=== PATIENT | female | born 1950 | race Hispanic/Latino ===

== ENCOUNTER 2017-12-20 23:29 | Emergency (ER) | payer OTHER ==
[~2017-12-20] VITALS: Ht 152.4 cm; Wt 81.6 kg
[~2017-12-20 23:29] MED LIST: ALPRAZOLAM0.5 MG PO; COUMADIN4 MG PO; ESCITALOPRAM OX10 MG PO; HYDROCODON-ACE1 EA11 PO; IMODIUM2 MG PO; METOPROLOL TART25 MG PO; RENVELA800 MG PO; SODIUM BICARBO650 MG PO
--- NOTE | 2017-12-21 00:31 | Diagnostic Imaging Report ---
History: Fall, hit the back of head Comparison studies:None Technique: Axial images were obtained from the brain and cervical spine. Coronal and sagittal images reconstructed from the axial data. Intravenous contrast: None Dose modulation, iterative reconstruction, and/or weight based adjustment of the mA/kV was utilized to reduce the radiation dose to as low as reasonably achievable. Findings: Head CT: Scalp/skull: No abnormalities. No fractures, blastic or lytic lesions. Brain sulci: Appropriate for age. Ventricles: Normal in size and configuration. No hydrocephalus. Extra-axial spaces: No masses. No fluid collections. Parenchyma: Scattered small hypodensities of the periventricular and deep white matter. Small chronic lacunar infarcts at the bilateral striatocapsular regions. No masses, hemorrhage, acute or chronic cortical vascular insults. Sellar/suprasellar region: No abnormalities. Craniocervical junction: Patent foramen magnum. No Chiari one malformation. Cervical spine CT: Fractures: None. Soft tissues: No gross abnormalities. Atlantoaxial articulation: No acute abnormality. Degenerative changes with decreased predental space, and sclerosis.. Alignment: Mild grade 1 anterolisthesis of C4 over C5. No scoliosis. Cervicomedullary junction: No abnormalities. Patent foramen magnum. Vertebrae: No infection or neoplasm. Partial fusion of C1 lateral masses and right posterior elements with the occipital condyles Degenerative changes: Uncinate process hypertrophy and facet hypertrophy results in [id number] foraminal narrowing of the medial cervical spine.. Incidental findings: None. Impression: Head CT: 1. No acute intracranial abnormality. 2. Mild chronic microvascular ischemic changes of the white matter. Cervical spine CT: 1. No acute abnormalities. 2. Cannot exclude ligament, spinal cord and or vascular abnormalities on the basis of this examination. Signed by: DR Abundio Stallings M.D. on 12/21/2017 12:27 AM
== END 2017-12-21 02:01 | disposition home or self-care (01) ==
LOC: ER 23:29
DX: S00.83XA Contusion of other part of head, initial encounter (principal); W05.0XXA Fall from non-moving wheelchair, initial encounter; Y92.008 Other place in unspecified non-institutional (private) residence as the place of occurrence of the external cause
CPT/HCPCS: 70450; 72125; 99284

== ENCOUNTER 2021-05-04 11:34 | Inpatient (IN) | payer MEDICARE, OTHER ==
[~2021-05-04] VITALS: Ht 152.4 cm; Wt 64.9 kg
[2021-05-04] MEDS ORDERED: ALBUTEROL/IPRATROPIUM 3 ML NEB NEB ONE (12:00)
[2021-05-04 12:40] LABS: BASOPHILS % 0.2 % (0.0-1.0); EOSINOPHILS # (AUTO) 0.1 (0.0-0.4); EOSINOPHILS % 1.2 % (0.0-6.0); HEMATOCRIT 27.9 % (34.2-44.1); HEMOGLOBIN 8.4 g/dL (12.0-16.0); LYMPHOCYTES # (AUTO) 0.8 (1.0-3.2); LYMPHOCYTES % 8.8 % (18.0-39.1); MEAN CORPUSCULAR HEMOGLOBIN 31.8 pg (28-32); MEAN CORPUSCULAR HGB CONC 30.1 g/dL (31-35); MEAN CORPUSCULAR VOLUME 105.7 fL (81-99); MONOCYTES # (AUTO) 0.4 (0.2-0.8); MONOCYTES % 3.9 % (4.4-11.3); NEUTROPHILS # (AUTO) 7.5 (2.1-6.9); NEUTROPHILS % 84.2 % (38.7-80.0); PLATELET COUNT 275 x10e3/uL (140-360); RED BLOOD COUNT 2.64 x10e6/uL (3.6-5.1); RED CELL DISTRIBUTION WIDTH 17.4 % (11.7-14.4)
[2021-05-04 13:00] LABS: ALBUMIN 2.8 g/dL (3.5-5.0); ALBUMIN/GLOBULIN RATIO 0.6 (0.8-2.0); ANION GAP 24.6 mmol/L (8-16); CALCIUM 8.8 mg/dL (8.4-10.2); CREATININE, SERUM 11.87 mg/dL (0.57-1.11)
[2021-05-04 13:02] LABS: POTASSIUM 5.6 mmol/L (3.5-5.1)
[2021-05-04] MEDS ORDERED: DEXTROSE 50% SYRINGE 50 ML IV STA (13:04)
[2021-05-04] MEDS ORDERED: SODIUM BICARBONATE 8.4% INJ 50 ML SYR IV STA (13:04)
[2021-05-04] MEDS ORDERED: ALBUTEROL SULFATE HFA 8GM INHALATION AEROSOL INH PRN (13:15)
[2021-05-04] MEDS ORDERED: SOD POLYSTYRENE SULFONATE SUSP 15 GM/60 ML BTL PO ONE (13:15)
[2021-05-04] MEDS ORDERED: INSULIN REGULAR, HUMAN 100 UNIT/1 ML IV ONE (13:15)
[2021-05-04] MEDS ORDERED: DEXAMETHASONE SOD PHOS 10 MG/1 ML VIAL IV ONE (13:30)
[2021-05-04] MEDS ORDERED: LOPERAMIDE HCL 2 MG CAP PO PRN (14:30)
[2021-05-04] MEDS ORDERED: DEXTROSE 50% SYRINGE 50 ML IV PRN (14:30)
[2021-05-04] MEDS ORDERED: SODIUM CHLORIDE 0.9% 1000ML 2,000 ML ONE (14:52)
[2021-05-04 16:04] VITALS: BP 145/80
[2021-05-04] MEDS: INSULIN REGULAR, HUMAN 100 UNIT/1 ML SQ SCH ×2 (16:30→21:33)
[2021-05-04 16:42] VITALS: BP 145/80
[2021-05-04] MEDS ORDERED: CEFTRIAXONE 1 GM in SODIUM CHLORIDE 0.9% 50ML 50 ML IV SCH (17:00)
[2021-05-04] MEDS: SODIUM BICARBONATE 650 MG TAB PO SCH (18:39)
[2021-05-04] MEDS: HYDROCODONE/APAP 5MG-325MG TAB PO PRN (18:40)
[2021-05-04 20:00] VITALS: BP 116/74
[2021-05-04 21:00] VITALS: BP 116/74
[2021-05-04] MEDS ORDERED: HEPARIN SOD (PORCINE) 5,000 UNIT/ML VIAL SC SCH (21:00)
[2021-05-04] MEDS ORDERED: ZOLPIDEM TARTRATE 5 MG TAB PO PRN (21:00)
[2021-05-04] MEDS: CEFTRIAXONE 1 GM in SODIUM CHLORIDE 0.9% 50ML 50 ML IV SCH (21:31)
[2021-05-05] VITALS (9 sets, daily range): BP systolic 116–144; BP diastolic 67–80
[2021-05-05] MEDS ORDERED: LIDOCAINE 4% PATCH TP PRN (02:00)
[2021-05-05] MEDS ORDERED: ALBUTEROL/IPRATROPIUM 3 ML NEB NEB PRN (02:00)
[2021-05-05] MEDS ORDERED: SIMETHICONE 80 MG CHEW PO PRN (02:00)
[2021-05-05] MEDS ORDERED: CHLORASEPTIC SPRAY 177 ML BTL MM PRN (02:00)
[2021-05-05] MEDS ORDERED: DIPHENHYDRAMINE HCL 25 MG CAP PO PRN (02:00)
[2021-05-05] MEDS ORDERED: DEXTROSE 50% SYRINGE 50 ML IV PRN (02:00)
[2021-05-05] MEDS ORDERED: DOCUSATE SODIUM 100 MG CAP PO PRN (02:00)
[2021-05-05] MEDS ORDERED: HYDRALAZINE HCL 20 MG/ML VIAL IV PRN (02:00)
[2021-05-05] MEDS ORDERED: TRAMADOL HCL 50 MG TAB PO PRN (02:00)
[2021-05-05 05:04] LABS: BASOPHILS % 0.2 % (0.0-1.0); HEMATOCRIT 27.8 % (34.2-44.1); HEMOGLOBIN 8.5 g/dL (12.0-16.0); LYMPHOCYTES # (AUTO) 0.6 (1.0-3.2); LYMPHOCYTES % 9.8 % (18.0-39.1); MEAN CORPUSCULAR HEMOGLOBIN 31.3 pg (28-32); MEAN CORPUSCULAR HGB CONC 30.6 g/dL (31-35); MEAN CORPUSCULAR VOLUME 102.2 fL (81-99); MONOCYTES # (AUTO) 0.3 (0.2-0.8); MONOCYTES % 5.7 % (4.4-11.3); NEUTROPHILS # (AUTO) 4.9 (2.1-6.9); NEUTROPHILS % 81.9 % (38.7-80.0); PLATELET COUNT 228 x10e3/uL (140-360); RED BLOOD COUNT 2.72 x10e6/uL (3.6-5.1); RED CELL DISTRIBUTION WIDTH 17.2 % (11.7-14.4)
[2021-05-05 05:31] LABS: ANION GAP 22.2 mmol/L (8-16); CALCIUM 8.3 mg/dL (8.4-10.2); CREATININE, SERUM 6.55 mg/dL (0.57-1.11); POTASSIUM 4.2 mmol/L (3.5-5.1)
[2021-05-05 06:12] LABS: MAGNESIUM 2.1 MG/DL (1.3-2.1); PHOSPHORUS 7.2 MG/DL (2.3-4.7)
[2021-05-05] MEDS ORDERED: PANTOPRAZOLE SOD 40 MG TABEC PO SCH (07:30)
[2021-05-05] MEDS ORDERED: SEVELAMER CARBONATE 800 MG TAB PO SCH (08:00)
[2021-05-05] MEDS: SODIUM BICARBONATE 650 MG TAB PO SCH ×2 (08:13→16:34)
[2021-05-05] MEDS: DEXAMETHASONE SOD PHOS 10 MG/1 ML VIAL IV SCH (08:14)
[2021-05-05] MEDS: INSULIN REGULAR, HUMAN 100 UNIT/1 ML SQ SCH ×5 (08:30→22:04)
[2021-05-05] MEDS ORDERED: REMDESIVIR 200MG 200 MG in SODIUM CHLORIDE 0.9% 100 ML IV ONE (09:00)
[2021-05-05] MEDS: ALPRAZOLAM 0.25 MG TAB PO PRN ×2 (11:13→22:00)
[2021-05-05] MEDS: SEVELAMER CARBONATE 800 MG TAB PO SCH ×2 (12:03→16:34)
[2021-05-05] MEDS ORDERED: SODIUM CHLORIDE 0.9% 1000ML 2,000 ML IV PRN (15:45)
[2021-05-05] MEDS ORDERED: HEPARIN SOD (PORCINE) 1000 UNIT/ML SDV IV PRN (16:15)
[2021-05-05] MEDS: CEFTRIAXONE 1 GM in SODIUM CHLORIDE 0.9% 50ML 50 ML IV SCH (20:59)
[2021-05-06] VITALS (19 sets, daily range): BP systolic 108–138; BP diastolic 54–82
[2021-05-06] MEDS: ALPRAZOLAM 0.25 MG TAB PO PRN ×2 (05:56→15:05)
[2021-05-06] MEDS ORDERED: ZIPRASIDONE 20 MG VIAL IM ONE (07:00)
[2021-05-06] MEDS: SEVELAMER CARBONATE 800 MG TAB PO SCH ×3 (07:30→18:04)
[2021-05-06] MEDS: INSULIN LISPRO 100 UNIT/1 ML 3ML VIAL SQ SCH ×3 (08:30→21:42)
[2021-05-06] MEDS: DEXAMETHASONE SOD PHOS 10 MG/1 ML VIAL IV SCH (09:16)
[2021-05-06] MEDS: REMDESIVIR 100MG 100 MG in SODIUM CHLORIDE 0.9% 100 ML IV SCH (09:16)
[2021-05-06] MEDS: SODIUM BICARBONATE 650 MG TAB PO SCH ×2 (09:16→18:04)
[2021-05-06] MEDS: CEFTRIAXONE 1 GM in SODIUM CHLORIDE 0.9% 50ML 50 ML IV SCH (20:41)
[2021-05-07] VITALS (15 sets, daily range): BP systolic 99–143; BP diastolic 53–79
[2021-05-07 05:50] LABS: BASOPHILS % 0.3 % (0.0-1.0); HEMATOCRIT 29.5 % (34.2-44.1); LYMPHOCYTES # (AUTO) 0.8 (1.0-3.2); LYMPHOCYTES % 14.2 % (18.0-39.1); MEAN CORPUSCULAR HGB CONC 30.5 g/dL (31-35); MONOCYTES # (AUTO) 0.4 (0.2-0.8); MONOCYTES % 7.2 % (4.4-11.3); NEUTROPHILS # (AUTO) 4.4 (2.1-6.9); NEUTROPHILS % 75.7 % (38.7-80.0); PLATELET COUNT 276 x10e3/uL (140-360); RED BLOOD COUNT 2.81 x10e6/uL (3.6-5.1); RED CELL DISTRIBUTION WIDTH 17.1 % (11.7-14.4)
[2021-05-07 06:04] LABS: ALBUMIN 2.6 g/dL (3.5-5.0); ALBUMIN/GLOBULIN RATIO 0.6 (0.8-2.0); ANION GAP 23.5 mmol/L (8-16); CALCIUM 8.9 mg/dL (8.4-10.2); CREATININE, SERUM 7.35 mg/dL (0.57-1.11); POTASSIUM 4.5 mmol/L (3.5-5.1)
[2021-05-07] MEDS: INSULIN LISPRO 100 UNIT/1 ML 3ML VIAL SQ SCH ×4 (07:30→20:33)
[2021-05-07] MEDS: ALPRAZOLAM 0.25 MG TAB PO PRN (07:44)
[2021-05-07] MEDS: SEVELAMER CARBONATE 800 MG TAB PO SCH ×3 (08:12→17:25)
[2021-05-07] MEDS: SODIUM BICARBONATE 650 MG TAB PO SCH ×2 (09:00→17:26)
[2021-05-07] MEDS: GUAIFENESIN/CODEINE 5 ML LIQD PO PRN (09:02)
[2021-05-07] MEDS: HYDROCODONE/APAP 5MG-325MG TAB PO PRN (10:26)
[2021-05-07 11:12] LABS: LYMPHOCYTES % (MANUAL) 8 % (19-48); MONOCYTES % (MANUAL) 8 % (3.4-9.0); MYELOCYTES % (MANUAL) 2 % (0-0); NEUTROPHILS % (MANUAL) 82 % (40-74); NUCLEATED RED BLOOD CELLS 4; PLATELET ESTIMATE ADEQUATE
[2021-05-07 11:13] LABS: PLATELET MORPHOLOGY COMMENT NORMAL; RBC MORPHOLOGY COMMENT NORMAL
[2021-05-07] MEDS ORDERED: DIPHENHYDRAMINE HCL INJ 50 MG/ML VIAL IV ONE ×2 (12:30→13:15)
[2021-05-07] MEDS: DEXAMETHASONE SOD PHOS 10 MG/1 ML VIAL IV SCH (13:30)
[2021-05-07] MEDS: ENOXAPARIN 30 MG/0.3 ML SYR SC SCH (13:35)
[2021-05-07] MEDS: REMDESIVIR 100MG 100 MG in SODIUM CHLORIDE 0.9% 100 ML IV SCH (14:30)
[2021-05-07] MEDS: CEFTRIAXONE 1 GM in SODIUM CHLORIDE 0.9% 50ML 50 ML IV SCH (20:37)
[2021-05-07] MEDS ORDERED: AZITHROMYCIN 250 MG TAB PO SCH (21:00)
[2021-05-07] MEDS: INSULIN GLARGINE 100 UNITS/ML VIAL SQ SCH (22:31)
[2021-05-08] VITALS (9 sets, daily range): BP systolic 105–138; BP diastolic 50–94
[2021-05-08 05:49] LABS: BASOPHILS % 0.3 % (0.0-1.0); HEMATOCRIT 31.7 % (34.2-44.1); HEMOGLOBIN 9.7 g/dL (12.0-16.0); LYMPHOCYTES # (AUTO) 1.2 (1.0-3.2); LYMPHOCYTES % 16.9 % (18.0-39.1); MEAN CORPUSCULAR HEMOGLOBIN 31.5 pg (28-32); MEAN CORPUSCULAR HGB CONC 30.6 g/dL (31-35); MEAN CORPUSCULAR VOLUME 102.9 fL (81-99); MONOCYTES # (AUTO) 0.6 (0.2-0.8); MONOCYTES % 7.6 % (4.4-11.3); NEUTROPHILS # (AUTO) 5.1 (2.1-6.9); NEUTROPHILS % 70.8 % (38.7-80.0); PLATELET COUNT 288 x10e3/uL (140-360); RED BLOOD COUNT 3.08 x10e6/uL (3.6-5.1); RED CELL DISTRIBUTION WIDTH 16.9 % (11.7-14.4)
[2021-05-08 06:09] LABS: ANION GAP 21.5 mmol/L (8-16); CALCIUM 9.6 mg/dL (8.4-10.2); CREATININE, SERUM 4.43 mg/dL (0.57-1.11); POTASSIUM 4.5 mmol/L (3.5-5.1)
[2021-05-08] MEDS: INSULIN LISPRO 100 UNIT/1 ML 3ML VIAL SQ SCH ×4 (07:13→21:00)
[2021-05-08] MEDS: ENOXAPARIN 30 MG/0.3 ML SYR SC SCH (08:49)
[2021-05-08] MEDS: REMDESIVIR 100MG 100 MG in SODIUM CHLORIDE 0.9% 100 ML IV SCH (08:49)
[2021-05-08] MEDS: SEVELAMER CARBONATE 800 MG TAB PO SCH ×3 (08:49→16:55)
[2021-05-08] MEDS: DEXAMETHASONE SOD PHOS 10 MG/1 ML VIAL IV SCH (08:49)
[2021-05-08] MEDS: SODIUM BICARBONATE 650 MG TAB PO SCH ×2 (08:49→16:55)
[2021-05-08 11:38] LABS: LYMPHOCYTES % (MANUAL) 6 % (19-48); MONOCYTES % (MANUAL) 3 % (3.4-9.0); MYELOCYTES % (MANUAL) 1 % (0-0); NEUTROPHILS % (MANUAL) 90 % (40-74); NUCLEATED RED BLOOD CELLS 1; PLATELET ESTIMATE ADEQUATE; PLATELET MORPHOLOGY COMMENT NORMAL; RBC MORPHOLOGY COMMENT NORMAL
[2021-05-08] MEDS: DEXMEDETOMIDINE 400MCG/NS100ML 100 ML IV PRN (12:06)
[2021-05-08] MEDS: APIXAB 2.5 MG TABLET PO SCH (16:55)
[2021-05-08] MEDS: GUAIFENESIN/CODEINE 5 ML LIQD PO PRN (16:57)
[2021-05-08] MEDS: BENZONATATE 100 MG CAP PO PRN (16:57)
[2021-05-08] MEDS: ACETAMINOPHEN 325 MG TAB PO PRN (16:57)
[2021-05-08] MEDS: ALPRAZOLAM 0.25 MG TAB PO PRN (17:03)
[2021-05-08] MEDS ORDERED: SODIUM CHLORIDE 0.9% 100 ML ONE (20:58)
[2021-05-08] MEDS: CEFTRIAXONE 1 GM in SODIUM CHLORIDE 0.9% 50ML 50 ML IV SCH (21:09)
[2021-05-08] MEDS: INSULIN GLARGINE 100 UNITS/ML VIAL SQ SCH (21:24)
[2021-05-08] MEDS ORDERED: Morphine 2mg Syringe 2 MG/ML SYR IV ONE (23:45)
[2021-05-09] VITALS (23 sets, daily range): BP systolic 76–140; BP diastolic 33–102
[2021-05-09] MEDS: HYDROCODONE/APAP 5MG-325MG TAB PO PRN (00:24)
[2021-05-09] MEDS ORDERED: ZIPRASIDONE 20 MG VIAL IM STA (06:48)
[2021-05-09] MEDS: INSULIN LISPRO 100 UNIT/1 ML 3ML VIAL SQ SCH ×4 (07:30→21:00)
[2021-05-09] MEDS ORDERED: HYDROCODONE/APAP 5MG-325MG TAB PO PRN (08:30)
[2021-05-09] MEDS: ALBUTEROL SULFATE HFA 8GM INHALATION AEROSOL INH SCH ×3 (08:45→20:43)
[2021-05-09] MEDS ORDERED: ALBUTEROL SULFATE HFA 8GM INHALATION AEROSOL INH PRN (08:45)
[2021-05-09] MEDS: DEXAMETHASONE SOD PHOS 10 MG/1 ML VIAL IV SCH (08:59)
[2021-05-09] MEDS: APIXAB 2.5 MG TABLET PO SCH ×2 (08:59→16:18)
[2021-05-09] MEDS: DEXMEDETOMIDINE 400MCG/NS100ML 100 ML IV PRN (08:59)
[2021-05-09] MEDS: REMDESIVIR 100MG 100 MG in SODIUM CHLORIDE 0.9% 100 ML IV SCH (08:59)
[2021-05-09] MEDS: SODIUM BICARBONATE 650 MG TAB PO SCH ×2 (08:59→16:18)
[2021-05-09] MEDS: SEVELAMER CARBONATE 800 MG TAB PO SCH ×3 (08:59→16:18)
[2021-05-09 09:32] LABS: BASOPHILS % 0.3 % (0.0-1.0); EOSINOPHILS % 0.2 % (0.0-6.0); HEMATOCRIT 29.8 % (34.2-44.1); LYMPHOCYTES # (AUTO) 0.9 (1.0-3.2); LYMPHOCYTES % 10.3 % (18.0-39.1); MEAN CORPUSCULAR HEMOGLOBIN 31.7 pg (28-32); MEAN CORPUSCULAR HGB CONC 30.2 g/dL (31-35); MEAN CORPUSCULAR VOLUME 104.9 fL (81-99); MONOCYTES # (AUTO) 0.5 (0.2-0.8); MONOCYTES % 5.3 % (4.4-11.3); NEUTROPHILS # (AUTO) 7.1 (2.1-6.9); NEUTROPHILS % 79.9 % (38.7-80.0); PLATELET COUNT 261 x10e3/uL (140-360); RED BLOOD COUNT 2.84 x10e6/uL (3.6-5.1); RED CELL DISTRIBUTION WIDTH 16.9 % (11.7-14.4)
[2021-05-09 09:51] LABS: ALBUMIN 2.7 g/dL (3.5-5.0); ALBUMIN/GLOBULIN RATIO 0.7 (0.8-2.0); ANION GAP 22.5 mmol/L (8-16); CREATININE, SERUM 6.53 mg/dL (0.57-1.11); POTASSIUM 4.5 mmol/L (3.5-5.1)
[2021-05-09] MEDS: GUAIFENESIN/CODEINE 5 ML LIQD PO PRN ×2 (12:30→18:10)
[2021-05-09] MEDS: IPRATROPIUM BROMIDE INHALER 12.9 GM INH INH SCH ×2 (13:00→20:43)
[2021-05-09] MEDS: QUETIAPINE FUMARATE 25 MG TAB PO SCH ×2 (13:59→22:26)
[2021-05-09] MEDS: ALBUMIN 25% 12.5GM 0.25 GM/ML BTL IV PRN (17:52)
[2021-05-09] MEDS: BENZONATATE 100 MG CAP PO PRN (18:10)
[2021-05-09] MEDS: CEFTRIAXONE 1 GM in SODIUM CHLORIDE 0.9% 50ML 50 ML IV SCH (20:43)
[2021-05-09] MEDS: INSULIN GLARGINE 100 UNITS/ML VIAL SQ SCH (21:00)
[2021-05-10] VITALS (11 sets, daily range): BP systolic 95–157; BP diastolic 55–74
[2021-05-10] MEDS: IPRATROPIUM BROMIDE INHALER 12.9 GM INH INH SCH ×4 (01:00→19:00)
[2021-05-10] MEDS: ALBUTEROL SULFATE HFA 8GM INHALATION AEROSOL INH SCH ×4 (01:00→19:00)
[2021-05-10] MEDS: QUETIAPINE FUMARATE 25 MG TAB PO SCH ×3 (05:58→21:58)
[2021-05-10] MEDS: INSULIN LISPRO 100 UNIT/1 ML 3ML VIAL SQ SCH ×4 (07:30→21:56)
[2021-05-10] MEDS: SEVELAMER CARBONATE 800 MG TAB PO SCH ×3 (07:30→17:34)
[2021-05-10] MEDS: SODIUM BICARBONATE 650 MG TAB PO SCH ×2 (07:37→17:34)
[2021-05-10] MEDS: APIXAB 2.5 MG TABLET PO SCH ×2 (07:37→17:34)
[2021-05-10] MEDS: DEXAMETHASONE SOD PHOS 10 MG/1 ML VIAL IV SCH (08:38)
[2021-05-10] MEDS: REMDESIVIR 100MG 100 MG in SODIUM CHLORIDE 0.9% 100 ML IV SCH (08:38)
[2021-05-10 08:44] LABS: BASOPHILS % 0.4 % (0.0-1.0); EOSINOPHILS # (AUTO) 0.1 (0.0-0.4); EOSINOPHILS % 0.9 % (0.0-6.0); HEMATOCRIT 30.5 % (34.2-44.1); HEMOGLOBIN 9.2 g/dL (12.0-16.0); LYMPHOCYTES # (AUTO) 0.8 (1.0-3.2); LYMPHOCYTES % 8.2 % (18.0-39.1); MEAN CORPUSCULAR HEMOGLOBIN 32.6 pg (28-32); MEAN CORPUSCULAR HGB CONC 30.2 g/dL (31-35); MEAN CORPUSCULAR VOLUME 108.2 fL (81-99); MONOCYTES # (AUTO) 0.4 (0.2-0.8); MONOCYTES % 4.1 % (4.4-11.3); NEUTROPHILS # (AUTO) 7.7 (2.1-6.9); NEUTROPHILS % 82.4 % (38.7-80.0); PLATELET COUNT 213 x10e3/uL (140-360); RED BLOOD COUNT 2.82 x10e6/uL (3.6-5.1); RED CELL DISTRIBUTION WIDTH 17.2 % (11.7-14.4)
[2021-05-10 09:04] LABS: ALBUMIN 3.1 g/dL (3.5-5.0); ALBUMIN/GLOBULIN RATIO 0.9 (0.8-2.0); ANION GAP 17.3 mmol/L (8-16); CALCIUM 8.9 mg/dL (8.4-10.2); CREATININE, SERUM 3.62 mg/dL (0.57-1.11); POTASSIUM 4.3 mmol/L (3.5-5.1)
[2021-05-10] MEDS: CEFTRIAXONE 1 GM in SODIUM CHLORIDE 0.9% 50ML 50 ML IV SCH (21:35)
[2021-05-10] MEDS: INSULIN GLARGINE 100 UNITS/ML VIAL SQ SCH (21:57)
[2021-05-11] VITALS (16 sets, daily range): BP systolic 67–147; BP diastolic 40–72
[2021-05-11] MEDS: IPRATROPIUM BROMIDE INHALER 12.9 GM INH INH SCH ×2 (01:00→19:20)
[2021-05-11] MEDS: ALBUTEROL SULFATE HFA 8GM INHALATION AEROSOL INH SCH ×2 (01:00→19:20)
[2021-05-11] MEDS: QUETIAPINE FUMARATE 25 MG TAB PO SCH ×3 (05:43→22:35)
[2021-05-11 07:26] LABS: BASOPHILS % 0.2 % (0.0-1.0); EOSINOPHILS # (AUTO) 0.1 (0.0-0.4); EOSINOPHILS % 0.5 % (0.0-6.0); HEMATOCRIT 31.1 % (34.2-44.1); HEMOGLOBIN 9.4 g/dL (12.0-16.0); LYMPHOCYTES # (AUTO) 1.5 (1.0-3.2); LYMPHOCYTES % 9.4 % (18.0-39.1); MEAN CORPUSCULAR HEMOGLOBIN 31.8 pg (28-32); MEAN CORPUSCULAR HGB CONC 30.2 g/dL (31-35); MEAN CORPUSCULAR VOLUME 105.1 fL (81-99); MONOCYTES # (AUTO) 0.8 (0.2-0.8); NEUTROPHILS # (AUTO) 12.7 (2.1-6.9); NEUTROPHILS % 82.1 % (38.7-80.0); PLATELET COUNT 275 x10e3/uL (140-360); RED BLOOD COUNT 2.96 x10e6/uL (3.6-5.1); RED CELL DISTRIBUTION WIDTH 17.4 % (11.7-14.4)
[2021-05-11] MEDS: INSULIN LISPRO 100 UNIT/1 ML 3ML VIAL SQ SCH ×4 (07:30→21:00)
[2021-05-11 07:37] LABS: ALBUMIN 2.9 g/dL (3.5-5.0); ALBUMIN/GLOBULIN RATIO 0.8 (0.8-2.0); ANION GAP 20.5 mmol/L (8-16); CALCIUM 8.5 mg/dL (8.4-10.2); CREATININE, SERUM 5.25 mg/dL (0.57-1.11); POTASSIUM 4.5 mmol/L (3.5-5.1)
[2021-05-11] MEDS ORDERED: ALBUMIN 25% 25GM 100ML 0.25 GM/ML BTL IV ONE (07:45)
[2021-05-11] MEDS ORDERED: ALBUMIN 25% 12.5GM 50ML 100 ML IV ONE (08:00)
[2021-05-11] MEDS ORDERED: SODIUM CHLORIDE 0.9% 1000ML 1,000 ML IV ONE (08:30)
[2021-05-11] MEDS: SEVELAMER CARBONATE 800 MG TAB PO SCH ×3 (08:34→17:52)
[2021-05-11] MEDS: MEROPENEM 500 MG in SODIUM CHLORIDE 0.9% 50ML 50 ML IV SCH ×2 (08:46→21:28)
[2021-05-11] MEDS: DEXAMETHASONE SOD PHOS 10 MG/1 ML VIAL IV SCH (08:46)
[2021-05-11] MEDS ORDERED: Vancomycin IV 1 GM in SODIUM CHLORIDE 0.9% 250ML 250 ML IV ONE ×2 (09:00→15:00)
[2021-05-11] MEDS: REMDESIVIR 100MG 100 MG in SODIUM CHLORIDE 0.9% 100 ML IV SCH (09:27)
[2021-05-11] MEDS: SODIUM BICARBONATE 650 MG TAB PO SCH ×2 (09:29→17:52)
[2021-05-11] MEDS: APIXAB 2.5 MG TABLET PO SCH ×2 (09:29→17:52)
[2021-05-11] MEDS: INSULIN GLARGINE 100 UNITS/ML VIAL SQ SCH (21:31)
[2021-05-12] VITALS (16 sets, daily range): BP systolic 88–119; BP diastolic 53–76
[2021-05-12] MEDS: IPRATROPIUM BROMIDE INHALER 12.9 GM INH INH SCH ×5 (01:05→23:28)
[2021-05-12] MEDS: ALBUTEROL SULFATE HFA 8GM INHALATION AEROSOL INH SCH ×5 (01:05→23:28)
[2021-05-12 05:02] LABS: BASOPHILS % 0.2 % (0.0-1.0); EOSINOPHILS % 0.2 % (0.0-6.0); HEMATOCRIT 32.2 % (34.2-44.1); HEMOGLOBIN 9.9 g/dL (12.0-16.0); LYMPHOCYTES # (AUTO) 0.7 (1.0-3.2); LYMPHOCYTES % 5.3 % (18.0-39.1); MEAN CORPUSCULAR HEMOGLOBIN 32.1 pg (28-32); MEAN CORPUSCULAR HGB CONC 30.7 g/dL (31-35); MEAN CORPUSCULAR VOLUME 104.5 fL (81-99); MONOCYTES # (AUTO) 0.7 (0.2-0.8); MONOCYTES % 5.6 % (4.4-11.3); NEUTROPHILS # (AUTO) 10.7 (2.1-6.9); NEUTROPHILS % 86.5 % (38.7-80.0); PLATELET COUNT 185 x10e3/uL (140-360); RED BLOOD COUNT 3.08 x10e6/uL (3.6-5.1); RED CELL DISTRIBUTION WIDTH 17.6 % (11.7-14.4)
[2021-05-12 05:25] LABS: ALBUMIN 3.3 g/dL (3.5-5.0); ALBUMIN/GLOBULIN RATIO 0.9 (0.8-2.0); ANION GAP 23.6 mmol/L (8-16); CALCIUM 8.7 mg/dL (8.4-10.2); CHOL/HDL RATIO 2.3 (3.0-3.6); CREATININE, SERUM 4.3 mg/dL (0.57-1.11); POTASSIUM 4.6 mmol/L (3.5-5.1)
[2021-05-12 05:46] LABS: THYROID STIMULATING HORMONE 2.01 uIU/mL (0.350-4.940)
[2021-05-12] MEDS: QUETIAPINE FUMARATE 25 MG TAB PO SCH ×3 (07:12→20:58)
[2021-05-12] MEDS: APIXAB 2.5 MG TABLET PO SCH ×2 (08:17→16:41)
[2021-05-12] MEDS: SEVELAMER CARBONATE 800 MG TAB PO SCH ×3 (08:17→16:40)
[2021-05-12] MEDS: SODIUM BICARBONATE 650 MG TAB PO SCH ×2 (08:17→16:41)
[2021-05-12] MEDS: INSULIN LISPRO 100 UNIT/1 ML 3ML VIAL SQ SCH ×4 (08:30→21:00)
[2021-05-12] MEDS: MEROPENEM 500 MG in SODIUM CHLORIDE 0.9% 50ML 50 ML IV SCH ×2 (09:07→20:58)
[2021-05-12] MEDS: DEXAMETHASONE SOD PHOS 10 MG/1 ML VIAL IV SCH (09:07)
[2021-05-12] MEDS: ACETAMINOPHEN 325 MG TAB PO PRN (17:06)
[2021-05-12] MEDS: INSULIN GLARGINE 100 UNITS/ML VIAL SQ SCH (21:01)
[2021-05-13] VITALS (13 sets, daily range): BP systolic 84–114; BP diastolic 47–74
[2021-05-13] MEDS: ACETAMINOPHEN 325 MG TAB PO PRN (02:10)
[2021-05-13] MEDS ORDERED: DEXMEDETOMIDINE 400MCG/NS100ML 100 ML IV STA (05:05)
[2021-05-13] MEDS: ONDANSETRON HCL INJ 2MG/ML 2ML 2 MG/ML VIAL IV PRN ×2 (05:13→15:40)
[2021-05-13] MEDS: QUETIAPINE FUMARATE 25 MG TAB PO SCH ×3 (06:00→21:43)
[2021-05-13] MEDS: INSULIN LISPRO 100 UNIT/1 ML 3ML VIAL SQ SCH ×4 (07:30→21:44)
[2021-05-13] MEDS: ALBUTEROL SULFATE HFA 8GM INHALATION AEROSOL INH SCH ×3 (08:07→19:36)
[2021-05-13] MEDS: IPRATROPIUM BROMIDE INHALER 12.9 GM INH INH SCH ×3 (08:07→19:35)
[2021-05-13 08:22] LABS: BASOPHILS % 0.2 % (0.0-1.0); EOSINOPHILS % 0.1 % (0.0-6.0); HEMATOCRIT 31.9 % (34.2-44.1); HEMOGLOBIN 9.8 g/dL (12.0-16.0); LYMPHOCYTES # (AUTO) 0.7 (1.0-3.2); LYMPHOCYTES % 4.1 % (18.0-39.1); MEAN CORPUSCULAR HEMOGLOBIN 32.2 pg (28-32); MEAN CORPUSCULAR HGB CONC 30.7 g/dL (31-35); MEAN CORPUSCULAR VOLUME 104.9 fL (81-99); MONOCYTES % 5.9 % (4.4-11.3); NEUTROPHILS % 88.1 % (38.7-80.0); PLATELET COUNT 176 x10e3/uL (140-360); RED BLOOD COUNT 3.04 x10e6/uL (3.6-5.1); RED CELL DISTRIBUTION WIDTH 17.7 % (11.7-14.4)
[2021-05-13] MEDS: SEVELAMER CARBONATE 800 MG TAB PO SCH ×3 (08:34→15:40)
[2021-05-13] MEDS: DEXMEDETOMIDINE 400MCG/NS100ML 100 ML IV SCH ×2 (08:34→21:45)
[2021-05-13] MEDS: DEXAMETHASONE SOD PHOS 10 MG/1 ML VIAL IV SCH (08:34)
[2021-05-13] MEDS: SODIUM BICARBONATE 650 MG TAB PO SCH ×2 (08:34→15:41)
[2021-05-13] MEDS: APIXAB 2.5 MG TABLET PO SCH ×2 (08:34→15:41)
[2021-05-13] MEDS: MEROPENEM 500 MG in SODIUM CHLORIDE 0.9% 50ML 50 ML IV SCH ×2 (08:34→21:00)
[2021-05-13 09:21] LABS: ALBUMIN 2.7 g/dL (3.5-5.0); ALBUMIN/GLOBULIN RATIO 0.8 (0.8-2.0); CALCIUM 8.5 mg/dL (8.4-10.2); CREATININE, SERUM 6.18 mg/dL (0.57-1.11)
[2021-05-13] MEDS ORDERED: ALBUMIN 25% 25GM 100ML 0.25 GM/ML BTL IV ONE (11:00)
[2021-05-13] MEDS ORDERED: ALBUMIN 25% 25GM 100ML 100 ML IV ONE (11:30)
[2021-05-13] MEDS: SODIUM CHLORIDE 0.9% 250ML 500 ML IV PRN (15:12)
[2021-05-13] MEDS ORDERED: ALBUMIN 25% 12.5GM 0.25 GM/ML BTL IV ONE (16:30)
[2021-05-13] MEDS ORDERED: ALBUMIN 25% 12.5GM 50ML 50 ML IV ONE (16:45)
[2021-05-13] MEDS: INSULIN GLARGINE 100 UNITS/ML VIAL SQ SCH (21:43)
[2021-05-14] VITALS (9 sets, daily range): BP systolic 85–107; BP diastolic 50–71
[2021-05-14] MEDS: IPRATROPIUM BROMIDE INHALER 12.9 GM INH INH SCH ×4 (01:44→19:21)
[2021-05-14] MEDS: ALBUTEROL SULFATE HFA 8GM INHALATION AEROSOL INH SCH ×4 (01:45→19:22)
[2021-05-14] MEDS: DEXMEDETOMIDINE 400MCG/NS100ML 100 ML IV SCH ×2 (02:45→22:45)
[2021-05-14 04:59] LABS: BASOPHILS % 0.1 % (0.0-1.0); HEMATOCRIT 28.9 % (34.2-44.1); HEMOGLOBIN 8.8 g/dL (12.0-16.0); LYMPHOCYTES # (AUTO) 0.7 (1.0-3.2); LYMPHOCYTES % 4.8 % (18.0-39.1); MEAN CORPUSCULAR HGB CONC 30.4 g/dL (31-35); MEAN CORPUSCULAR VOLUME 105.1 fL (81-99); MONOCYTES # (AUTO) 0.7 (0.2-0.8); NEUTROPHILS # (AUTO) 12.2 (2.1-6.9); NEUTROPHILS % 89.3 % (38.7-80.0); PLATELET COUNT 172 x10e3/uL (140-360); RED BLOOD COUNT 2.75 x10e6/uL (3.6-5.1); RED CELL DISTRIBUTION WIDTH 17.5 % (11.7-14.4)
[2021-05-14 05:29] LABS: ALBUMIN 2.8 g/dL (3.5-5.0); ALBUMIN/GLOBULIN RATIO 0.9 (0.8-2.0); ANION GAP 25.5 mmol/L (8-16); CALCIUM 8.4 mg/dL (8.4-10.2); CREATININE, SERUM 7.05 mg/dL (0.57-1.11); POTASSIUM 5.5 mmol/L (3.5-5.1)
[2021-05-14] MEDS: QUETIAPINE FUMARATE 25 MG TAB PO SCH ×3 (05:46→21:55)
[2021-05-14] MEDS: SEVELAMER CARBONATE 800 MG TAB PO SCH ×3 (07:24→16:24)
[2021-05-14] MEDS: INSULIN LISPRO 100 UNIT/1 ML 3ML VIAL SQ SCH ×4 (07:24→21:52)
[2021-05-14] MEDS: MEROPENEM 500 MG in SODIUM CHLORIDE 0.9% 50ML 50 ML IV SCH ×2 (08:10→21:51)
[2021-05-14] MEDS: DEXAMETHASONE SOD PHOS 10 MG/1 ML VIAL IV SCH (08:10)
[2021-05-14] MEDS: APIXAB 2.5 MG TABLET PO SCH ×2 (08:11→17:44)
[2021-05-14] MEDS: SODIUM BICARBONATE 650 MG TAB PO SCH ×2 (08:11→17:44)
[2021-05-14] MEDS: SODIUM CHLORIDE 0.9% 250ML 500 ML IV PRN (08:12)
[2021-05-14] MEDS: ALBUMIN 25% 12.5GM 0.25 GM/ML BTL IV PRN ×2 (08:12→08:13)
[2021-05-14] MEDS ORDERED: HYDROCORTISONE SOD SUCCINATE 100 MG VIAL IV ONE (11:00)
[2021-05-14 11:06] LABS: LYMPHOCYTES % (MANUAL) 9 % (19-48); MONOCYTES % (MANUAL) 3 % (3.4-9.0); NEUTROPHILS % (MANUAL) 88 % (40-74); PLATELET ESTIMATE ADEQUATE; PLATELET MORPHOLOGY COMMENT NORMAL; RBC MORPHOLOGY COMMENT NORMAL
[2021-05-14] MEDS: INSULIN GLARGINE 100 UNITS/ML VIAL SQ SCH (21:52)
[2021-05-15] VITALS (11 sets, daily range): BP systolic 74–122; BP diastolic 56–81
[2021-05-15] MEDS: IPRATROPIUM BROMIDE INHALER 12.9 GM INH INH SCH ×4 (01:33→21:06)
[2021-05-15] MEDS: ALBUTEROL SULFATE HFA 8GM INHALATION AEROSOL INH SCH ×4 (01:34→19:08)
[2021-05-15] MEDS: DEXMEDETOMIDINE 400MCG/NS100ML 100 ML IV SCH ×2 (04:35→22:01)
[2021-05-15 04:44] LABS: BASOPHILS % 0.1 % (0.0-1.0); EOSINOPHILS # (AUTO) 0.2 (0.0-0.4); EOSINOPHILS % 2.1 % (0.0-6.0); HEMATOCRIT 24.2 % (34.2-44.1); HEMOGLOBIN 7.6 g/dL (12.0-16.0); LYMPHOCYTES # (AUTO) 0.6 (1.0-3.2); LYMPHOCYTES % 5.8 % (18.0-39.1); MEAN CORPUSCULAR HEMOGLOBIN 32.5 pg (28-32); MEAN CORPUSCULAR HGB CONC 31.4 g/dL (31-35); MEAN CORPUSCULAR VOLUME 103.4 fL (81-99); MONOCYTES # (AUTO) 0.7 (0.2-0.8); MONOCYTES % 7.1 % (4.4-11.3); NEUTROPHILS # (AUTO) 8.7 (2.1-6.9); NEUTROPHILS % 83.8 % (38.7-80.0); PLATELET COUNT 162 x10e3/uL (140-360); RED BLOOD COUNT 2.34 x10e6/uL (3.6-5.1); RED CELL DISTRIBUTION WIDTH 17.2 % (11.7-14.4)
[2021-05-15 05:00] LABS: ALBUMIN 3.1 g/dL (3.5-5.0); ALBUMIN/GLOBULIN RATIO 1.3 (0.8-2.0); ANION GAP 17.9 mmol/L (8-16); CALCIUM 8.3 mg/dL (8.4-10.2); CREATININE, SERUM 4.27 mg/dL (0.57-1.11); POTASSIUM 3.9 mmol/L (3.5-5.1)
[2021-05-15 05:20] LABS: MAGNESIUM 2.3 MG/DL (1.3-2.1)
[2021-05-15] MEDS: QUETIAPINE FUMARATE 25 MG TAB PO SCH ×4 (05:34→21:31)
[2021-05-15] MEDS: INSULIN LISPRO 100 UNIT/1 ML 3ML VIAL SQ SCH ×4 (07:30→21:32)
[2021-05-15] MEDS: SEVELAMER CARBONATE 800 MG TAB PO SCH ×3 (07:30→16:27)
[2021-05-15] MEDS: MEROPENEM 500 MG in SODIUM CHLORIDE 0.9% 50ML 50 ML IV SCH (08:45)
[2021-05-15] MEDS: SODIUM BICARBONATE 650 MG TAB PO SCH (08:45)
[2021-05-15] MEDS: APIXAB 2.5 MG TABLET PO SCH (08:45)
[2021-05-15] MEDS: ONDANSETRON HCL INJ 2MG/ML 2ML 2 MG/ML VIAL IV PRN (09:52)
[2021-05-15] MEDS: ZIPRASIDONE 20 MG VIAL IM PRN (17:05)
[2021-05-15] MEDS ORDERED: HEPARIN SOD (PORCINE) 1000 UNIT/ML SDV ONE (18:42)
[2021-05-15] MEDS: SODIUM CHLORIDE 0.9% 250ML 500 ML IV PRN (21:33)
[2021-05-15] MEDS: INSULIN GLARGINE 100 UNITS/ML VIAL SQ SCH (21:33)
[2021-05-16] VITALS (14 sets, daily range): BP systolic 71–125; BP diastolic 56–82
[2021-05-16] MEDS: IPRATROPIUM BROMIDE INHALER 12.9 GM INH INH SCH ×4 (01:00→19:10)
[2021-05-16] MEDS: ALBUTEROL SULFATE HFA 8GM INHALATION AEROSOL INH SCH ×4 (01:00→19:10)
[2021-05-16] MEDS ORDERED: VASOPRESSIN 60 UNIT in DEXTROSE 5% 50ML 57 ML IV STA (02:51)
[2021-05-16] MEDS: ALBUMIN 25% 12.5GM 0.25 GM/ML BTL IV PRN (02:57)
[2021-05-16] MEDS ORDERED: NOREPINEPHRINE 8 MG/D5W 250 ML 250 ML IV SCH (03:45)
[2021-05-16] MEDS: QUETIAPINE FUMARATE 25 MG TAB PO SCH ×3 (06:28→23:09)
[2021-05-16 06:42] LABS: ALBUMIN 3.7 g/dL (3.5-5.0); ALBUMIN/GLOBULIN RATIO 1.6 (0.8-2.0); ANION GAP 20.3 mmol/L (8-16); CALCIUM 8.3 mg/dL (8.4-10.2); CREATININE, SERUM 5.78 mg/dL (0.57-1.11); POTASSIUM 4.3 mmol/L (3.5-5.1)
[2021-05-16] MEDS: INSULIN LISPRO 100 UNIT/1 ML 3ML VIAL SQ SCH ×4 (07:30→21:00)
[2021-05-16] MEDS: MEROPENEM 500 MG in SODIUM CHLORIDE 0.9% 50ML 50 ML IV SCH (08:02)
[2021-05-16] MEDS: SEVELAMER CARBONATE 800 MG TAB PO SCH ×3 (08:02→16:54)
[2021-05-16] MEDS ORDERED: SODIUM CHLORIDE 0.9% 1000ML 2,000 ML IV PRN (11:30)
[2021-05-16] MEDS ORDERED: ALBUMIN 25% 12.5GM 0.25 GM/ML BTL IV PRN (11:30)
[2021-05-16 11:37] LABS: BASOPHILS % 0.1 % (0.0-1.0); EOSINOPHILS # (AUTO) 0.3 (0.0-0.4); EOSINOPHILS % 3.4 % (0.0-6.0); HEMOGLOBIN 8.4 g/dL (12.0-16.0); LYMPHOCYTES # (AUTO) 0.6 (1.0-3.2); LYMPHOCYTES % 6.8 % (18.0-39.1); MEAN CORPUSCULAR HEMOGLOBIN 32.4 pg (28-32); MEAN CORPUSCULAR VOLUME 108.1 fL (81-99); MONOCYTES # (AUTO) 0.6 (0.2-0.8); MONOCYTES % 6.9 % (4.4-11.3); NEUTROPHILS # (AUTO) 7.6 (2.1-6.9); NEUTROPHILS % 81.9 % (38.7-80.0); PLATELET COUNT 156 x10e3/uL (140-360); RED BLOOD COUNT 2.59 x10e6/uL (3.6-5.1)
[2021-05-16] MEDS: NOREPINEPHRINE 8 MG/D5W 250 ML 250 ML IV SCH (12:16)
[2021-05-16] MEDS: APIXAB 2.5 MG TABLET PO SCH (14:02)
[2021-05-16] MEDS: ONDANSETRON HCL INJ 2MG/ML 2ML 2 MG/ML VIAL IV PRN (15:13)
[2021-05-16] MEDS: EPOETIN ALFA-EPBX 10,000 UNIT/ML VIAL SC SCH (16:59)
[2021-05-16] MEDS: INSULIN GLARGINE 100 UNITS/ML VIAL SQ SCH (21:33)
[2021-05-17] VITALS (15 sets, daily range): BP systolic 93–112; BP diastolic 59–87
[2021-05-17] MEDS: IPRATROPIUM BROMIDE INHALER 12.9 GM INH INH SCH ×4 (01:00→19:25)
[2021-05-17] MEDS: ALBUTEROL SULFATE HFA 8GM INHALATION AEROSOL INH SCH ×4 (01:00→19:25)
[2021-05-17] MEDS: QUETIAPINE FUMARATE 25 MG TAB PO SCH ×4 (06:27→22:13)
[2021-05-17 06:29] LABS: BASOPHILS % 0.2 % (0.0-1.0); EOSINOPHILS # (AUTO) 0.1 (0.0-0.4); EOSINOPHILS % 0.5 % (0.0-6.0); HEMATOCRIT 27.3 % (34.2-44.1); HEMOGLOBIN 8.3 g/dL (12.0-16.0); LYMPHOCYTES # (AUTO) 0.8 (1.0-3.2); LYMPHOCYTES % 5.6 % (18.0-39.1); MEAN CORPUSCULAR HEMOGLOBIN 32.3 pg (28-32); MEAN CORPUSCULAR HGB CONC 30.4 g/dL (31-35); MEAN CORPUSCULAR VOLUME 106.2 fL (81-99); MONOCYTES % 7.5 % (4.4-11.3); NEUTROPHILS # (AUTO) 11.5 (2.1-6.9); NEUTROPHILS % 85.2 % (38.7-80.0); PLATELET COUNT 189 x10e3/uL (140-360); RED BLOOD COUNT 2.57 x10e6/uL (3.6-5.1); RED CELL DISTRIBUTION WIDTH 16.6 % (11.7-14.4)
[2021-05-17] MEDS: DEXMEDETOMIDINE 400MCG/NS100ML 100 ML IV SCH (06:45)
[2021-05-17 06:53] LABS: ALBUMIN 3.4 g/dL (3.5-5.0); ALBUMIN/GLOBULIN RATIO 1.1 (0.8-2.0); ALKALINE PHOSPHATASE 73 IU/L (40-150); BLOOD UREA NITROGEN 38 mg/dL (7-26); BUN/CREATININE RATIO 9 (6-25); CALCIUM 8.6 mg/dL (8.4-10.2); CARBON DIOXIDE 22 mmol/L (22-29); CHLORIDE 102 mmol/L (98-107); CREATININE, SERUM 4.27 mg/dL (0.57-1.11); EST GLOMERULAR FILTRATION RATE 10 ML/MIN (60-); GLUCOSE 134 mg/dL (74-118); SODIUM 142 mmol/L (136-145)
[2021-05-17 07:02] LABS: ALANINE AMINOTRANSFERASE < 6 IU/L (0-55)
[2021-05-17] MEDS: INSULIN LISPRO 100 UNIT/1 ML 3ML VIAL SQ SCH ×4 (07:30→21:00)
[2021-05-17] MEDS: APIXAB 2.5 MG TABLET PO SCH ×2 (08:43→17:04)
[2021-05-17] MEDS: SEVELAMER CARBONATE 800 MG TAB PO SCH ×3 (08:44→17:04)
[2021-05-17] MEDS: MEROPENEM 500 MG in SODIUM CHLORIDE 0.9% 50ML 50 ML IV SCH (08:50)
[2021-05-17] MEDS: LACTOBACILLUS ACIDOPHILUS CAPSULE PO SCH ×2 (09:08→17:06)
[2021-05-17] MEDS: NOREPINEPHRINE 8 MG/D5W 250 ML 250 ML IV SCH (11:00)
[2021-05-17] MEDS: ACETAMINOPHEN 325 MG TAB PO PRN (11:05)
[2021-05-17] MEDS: INSULIN GLARGINE 100 UNITS/ML VIAL SQ SCH (21:33)
[2021-05-18] VITALS (9 sets, daily range): BP systolic 99–122; BP diastolic 54–75
[2021-05-18] MEDS: IPRATROPIUM BROMIDE INHALER 12.9 GM INH INH SCH ×4 (02:00→19:52)
[2021-05-18] MEDS: ALBUTEROL SULFATE HFA 8GM INHALATION AEROSOL INH SCH ×4 (02:00→19:52)
[2021-05-18] MEDS: DEXMEDETOMIDINE 400MCG/NS100ML 100 ML IV SCH (06:45)
[2021-05-18] MEDS: QUETIAPINE FUMARATE 25 MG TAB PO SCH ×3 (07:09→21:03)
[2021-05-18] MEDS: INSULIN LISPRO 100 UNIT/1 ML 3ML VIAL SQ SCH ×4 (07:30→21:00)
[2021-05-18 07:56] LABS: BASOPHILS % 0.1 % (0.0-1.0); EOSINOPHILS # (AUTO) 0.3 (0.0-0.4); EOSINOPHILS % 3.1 % (0.0-6.0); HEMATOCRIT 23.2 % (34.2-44.1); HEMOGLOBIN 7.3 g/dL (12.0-16.0); LYMPHOCYTES # (AUTO) 0.8 (1.0-3.2); LYMPHOCYTES % 7.5 % (18.0-39.1); MEAN CORPUSCULAR HEMOGLOBIN 32.4 pg (28-32); MEAN CORPUSCULAR HGB CONC 31.5 g/dL (31-35); MEAN CORPUSCULAR VOLUME 103.1 fL (81-99); MONOCYTES # (AUTO) 0.8 (0.2-0.8); MONOCYTES % 7.9 % (4.4-11.3); NEUTROPHILS # (AUTO) 8.5 (2.1-6.9); PLATELET COUNT 183 x10e3/uL (140-360); RED BLOOD COUNT 2.25 x10e6/uL (3.6-5.1); RED CELL DISTRIBUTION WIDTH 16.3 % (11.7-14.4)
[2021-05-18 08:26] LABS: ALBUMIN 2.8 g/dL (3.5-5.0); ALKALINE PHOSPHATASE 68 IU/L (40-150); BLOOD UREA NITROGEN 58 mg/dL (7-26); BUN/CREATININE RATIO 10 (6-25); CALCIUM 8.6 mg/dL (8.4-10.2); CARBON DIOXIDE 24 mmol/L (22-29); CHLORIDE 100 mmol/L (98-107); EST GLOMERULAR FILTRATION RATE 7 ML/MIN (60-); GLUCOSE 131 mg/dL (74-118); SODIUM 138 mmol/L (136-145)
[2021-05-18 08:29] LABS: ALANINE AMINOTRANSFERASE < 6 IU/L (0-55)
[2021-05-18] MEDS: SEVELAMER CARBONATE 800 MG TAB PO SCH ×3 (08:54→16:22)
[2021-05-18] MEDS ORDERED: SODIUM CHLORIDE 0.9% 250ML 250 ML IV ONE (10:00)
[2021-05-18] MEDS: NOREPINEPHRINE 8 MG/D5W 250 ML 250 ML IV SCH (11:00)
[2021-05-18] MEDS: LACTOBACILLUS ACIDOPHILUS CAPSULE PO SCH ×2 (12:47→17:35)
[2021-05-18] MEDS: APIXAB 2.5 MG TABLET PO SCH ×2 (12:47→17:35)
[2021-05-18] MEDS ORDERED: SODIUM CITRATE 10 GM/250 ML BAG HE PRN (13:15)
[2021-05-18] MEDS: INSULIN GLARGINE 100 UNITS/ML VIAL SQ SCH (20:52)
[2021-05-19] VITALS (11 sets, daily range): BP systolic 106–131; BP diastolic 61–84
[2021-05-19] MEDS: ONDANSETRON HCL INJ 2MG/ML 2ML 2 MG/ML VIAL IV PRN (00:51)
[2021-05-19] MEDS: IPRATROPIUM BROMIDE INHALER 12.9 GM INH INH SCH ×4 (01:06→18:55)
[2021-05-19] MEDS: ALBUTEROL SULFATE HFA 8GM INHALATION AEROSOL INH SCH ×4 (01:06→18:55)
[2021-05-19] MEDS: QUETIAPINE FUMARATE 25 MG TAB PO SCH ×3 (06:12→21:11)
[2021-05-19] MEDS: DEXMEDETOMIDINE 400MCG/NS100ML 100 ML IV SCH (06:45)
[2021-05-19] MEDS: INSULIN LISPRO 100 UNIT/1 ML 3ML VIAL SQ SCH ×4 (07:30→21:04)
[2021-05-19] MEDS: APIXAB 2.5 MG TABLET PO SCH ×2 (08:26→16:46)
[2021-05-19] MEDS: SEVELAMER CARBONATE 800 MG TAB PO SCH ×3 (08:26→16:45)
[2021-05-19] MEDS: LACTOBACILLUS ACIDOPHILUS CAPSULE PO SCH ×2 (08:26→16:46)
[2021-05-19] MEDS: NOREPINEPHRINE 8 MG/D5W 250 ML 250 ML IV SCH (08:26)
[2021-05-19] MEDS: EPOETIN ALFA-EPBX 10,000 UNIT/ML VIAL SC SCH (16:46)
[2021-05-19] MEDS: INSULIN GLARGINE 100 UNITS/ML VIAL SQ SCH (21:05)
[2021-05-20] VITALS (9 sets, daily range): BP systolic 93–136; BP diastolic 63–88
[2021-05-20] MEDS: IPRATROPIUM BROMIDE INHALER 12.9 GM INH INH SCH ×4 (02:30→19:15)
[2021-05-20] MEDS: ALBUTEROL SULFATE HFA 8GM INHALATION AEROSOL INH SCH ×4 (02:30→19:15)
[2021-05-20] MEDS: QUETIAPINE FUMARATE 25 MG TAB PO SCH ×3 (05:40→22:48)
[2021-05-20 06:12] LABS: BASOPHILS % 0.3 % (0.0-1.0); EOSINOPHILS # (AUTO) 0.3 (0.0-0.4); EOSINOPHILS % 3.3 % (0.0-6.0); HEMOGLOBIN 10.3 g/dL (12.0-16.0); LYMPHOCYTES # (AUTO) 0.8 (1.0-3.2); LYMPHOCYTES % 8.7 % (18.0-39.1); MEAN CORPUSCULAR HEMOGLOBIN 31.2 pg (28-32); MEAN CORPUSCULAR HGB CONC 32.2 g/dL (31-35); MONOCYTES # (AUTO) 0.7 (0.2-0.8); MONOCYTES % 7.6 % (4.4-11.3); NEUTROPHILS # (AUTO) 7.6 (2.1-6.9); NEUTROPHILS % 78.9 % (38.7-80.0); PLATELET COUNT 198 x10e3/uL (140-360); RED CELL DISTRIBUTION WIDTH 17.7 % (11.7-14.4)
[2021-05-20 06:34] LABS: ANION GAP 17.6 mmol/L (8-16); BLOOD UREA NITROGEN 50 mg/dL (7-26); CARBON DIOXIDE 24 mmol/L (22-29); CHLORIDE 101 mmol/L (98-107); CREATININE, SERUM 5.55 mg/dL (0.57-1.11); POTASSIUM 3.6 mmol/L (3.5-5.1); SODIUM 139 mmol/L (136-145)
[2021-05-20 06:35] LABS: ALBUMIN 2.7 g/dL (3.5-5.0); ALBUMIN/GLOBULIN RATIO 0.8 (0.8-2.0); ALKALINE PHOSPHATASE 78 IU/L (40-150); BUN/CREATININE RATIO 9 (6-25); CALCIUM 8.8 mg/dL (8.4-10.2); EST GLOMERULAR FILTRATION RATE 8 ML/MIN (60-); GLUCOSE 94 mg/dL (74-118)
[2021-05-20 06:38] LABS: ALANINE AMINOTRANSFERASE < 6 IU/L (0-55)
[2021-05-20] MEDS: INSULIN LISPRO 100 UNIT/1 ML 3ML VIAL SQ SCH ×4 (07:30→21:00)
[2021-05-20] MEDS: SEVELAMER CARBONATE 800 MG TAB PO SCH ×3 (08:13→16:18)
[2021-05-20] MEDS: APIXAB 2.5 MG TABLET PO SCH ×2 (08:13→16:20)
[2021-05-20] MEDS: LACTOBACILLUS ACIDOPHILUS CAPSULE PO SCH ×2 (08:13→16:20)
[2021-05-20] MEDS: NOREPINEPHRINE 8 MG/D5W 250 ML 250 ML IV SCH (11:00)
[2021-05-20] MEDS ORDERED: AMIODARONE HCL 150 MG/100 ML BAG IV ONE (12:30)
[2021-05-20] MEDS ORDERED: AMIODARONE 900MG 900 MG in Premix Bag 1 BAG IV SCH (12:30)
[2021-05-20] MEDS ORDERED: AMIODARONE HCL 150 MG in DEXTROSE 5% 100ML 100 ML IV SCH (12:45)
[2021-05-20] MEDS ORDERED: AMIODARONE 900MG 500 ML IV ONE (12:45)
[2021-05-20] MEDS ORDERED: AMIODARONE 900MG 500 ML IV SCH (12:45)
[2021-05-20] MEDS: INSULIN GLARGINE 100 UNITS/ML VIAL SQ SCH (21:58)
[2021-05-21] VITALS (8 sets, daily range): BP systolic 96–114; BP diastolic 55–68
[2021-05-21] MEDS: ALBUTEROL SULFATE HFA 8GM INHALATION AEROSOL INH SCH ×4 (00:44→18:00)
[2021-05-21] MEDS: IPRATROPIUM BROMIDE INHALER 12.9 GM INH INH SCH ×4 (00:59→18:00)
[2021-05-21] MEDS: QUETIAPINE FUMARATE 25 MG TAB PO SCH ×3 (07:21→23:00)
[2021-05-21] MEDS: SEVELAMER CARBONATE 800 MG TAB PO SCH ×3 (07:30→16:30)
[2021-05-21] MEDS: INSULIN LISPRO 100 UNIT/1 ML 3ML VIAL SQ SCH ×4 (07:30→21:00)
[2021-05-21] MEDS: LACTOBACILLUS ACIDOPHILUS CAPSULE PO SCH ×2 (08:18→17:34)
[2021-05-21] MEDS: APIXAB 2.5 MG TABLET PO SCH ×2 (08:18→17:34)
[2021-05-21] MEDS: NOREPINEPHRINE 8 MG/D5W 250 ML 250 ML IV SCH (11:00)
[2021-05-21] MEDS: AMIODARONE HCL 200 MG TAB PO SCH (12:09)
[2021-05-21] MEDS: EPOETIN ALFA-EPBX 10,000 UNIT/ML VIAL SC SCH (17:00)
[2021-05-21] MEDS: INSULIN GLARGINE 100 UNITS/ML VIAL SQ SCH (21:56)
[2021-05-22] VITALS (16 sets, daily range): BP systolic 83–129; BP diastolic 56–89
[2021-05-22] MEDS: IPRATROPIUM BROMIDE INHALER 12.9 GM INH INH SCH ×5 (00:59→23:13)
[2021-05-22] MEDS: ALBUTEROL SULFATE HFA 8GM INHALATION AEROSOL INH SCH ×5 (00:59→23:13)
[2021-05-22] MEDS: QUETIAPINE FUMARATE 25 MG TAB PO SCH ×3 (06:28→21:18)
[2021-05-22] MEDS: INSULIN LISPRO 100 UNIT/1 ML 3ML VIAL SQ SCH ×4 (07:30→21:00)
[2021-05-22 07:46] LABS: ALBUMIN 2.7 g/dL (3.5-5.0); ALBUMIN/GLOBULIN RATIO 0.7 (0.8-2.0); ANION GAP 19.4 mmol/L (8-16); CALCIUM 8.6 mg/dL (8.4-10.2); CREATININE, SERUM 5.73 mg/dL (0.57-1.11); POTASSIUM 4.4 mmol/L (3.5-5.1)
[2021-05-22 07:52] LABS: BASOPHILS # (AUTO) 0.1 (0.0-0.1); BASOPHILS % 0.6 % (0.0-1.0); EOSINOPHILS # (AUTO) 0.6 (0.0-0.4); EOSINOPHILS % 6.4 % (0.0-6.0); HEMATOCRIT 36.3 % (34.2-44.1); HEMOGLOBIN 11.6 g/dL (12.0-16.0); LYMPHOCYTES # (AUTO) 1.4 (1.0-3.2); LYMPHOCYTES % 13.6 % (18.0-39.1); MEAN CORPUSCULAR HEMOGLOBIN 31.3 pg (28-32); MEAN CORPUSCULAR VOLUME 97.8 fL (81-99); MONOCYTES # (AUTO) 0.7 (0.2-0.8); MONOCYTES % 7.4 % (4.4-11.3); NEUTROPHILS # (AUTO) 7.1 (2.1-6.9); NEUTROPHILS % 70.6 % (38.7-80.0); PLATELET COUNT 221 x10e3/uL (140-360); RED BLOOD COUNT 3.71 x10e6/uL (3.6-5.1); RED CELL DISTRIBUTION WIDTH 16.8 % (11.7-14.4)
[2021-05-22] MEDS: ACETAMINOPHEN 325 MG TAB PO PRN (07:53)
[2021-05-22] MEDS: SEVELAMER CARBONATE 800 MG TAB PO SCH ×3 (07:53→15:38)
[2021-05-22] MEDS: LACTOBACILLUS ACIDOPHILUS CAPSULE PO SCH ×2 (08:02→16:27)
[2021-05-22] MEDS: AMIODARONE HCL 200 MG TAB PO SCH (08:02)
[2021-05-22] MEDS: APIXAB 2.5 MG TABLET PO SCH ×2 (08:02→16:27)
[2021-05-22] MEDS: NOREPINEPHRINE 8 MG/D5W 250 ML 250 ML IV SCH (09:08)
[2021-05-22] MEDS ORDERED: ALTEPLASE RECOMBINANT 2 MG/2 ML VIAL IV PRN (12:15)
[2021-05-22] MEDS: ZIPRASIDONE 20 MG VIAL IM PRN (15:52)
[2021-05-22] MEDS: INSULIN GLARGINE 100 UNITS/ML VIAL SQ SCH (21:00)
[2021-05-23] VITALS (22 sets, daily range): BP systolic 89–151; BP diastolic 57–74
[2021-05-23] MEDS: ZIPRASIDONE 20 MG VIAL IM PRN (01:01)
[2021-05-23] MEDS: QUETIAPINE FUMARATE 25 MG TAB PO SCH ×3 (06:00→17:24)
[2021-05-23] MEDS: ALBUTEROL SULFATE HFA 8GM INHALATION AEROSOL INH SCH ×3 (07:15→20:35)
[2021-05-23] MEDS: IPRATROPIUM BROMIDE INHALER 12.9 GM INH INH SCH ×3 (07:15→20:41)
[2021-05-23] MEDS: INSULIN LISPRO 100 UNIT/1 ML 3ML VIAL SQ SCH ×4 (07:30→21:57)
[2021-05-23] MEDS ORDERED: ZIPRASIDONE 20 MG VIAL IM PRN (07:45)
[2021-05-23] MEDS: SEVELAMER CARBONATE 800 MG TAB PO SCH ×3 (08:44→15:56)
[2021-05-23] MEDS: APIXAB 2.5 MG TABLET PO SCH (08:44)
[2021-05-23] MEDS: AMIODARONE HCL 200 MG TAB PO SCH (08:44)
[2021-05-23] MEDS: LACTOBACILLUS ACIDOPHILUS CAPSULE PO SCH ×2 (08:44→16:45)
[2021-05-23] MEDS: NOREPINEPHRINE 8 MG/D5W 250 ML 250 ML IV SCH (10:22)
[2021-05-23] MEDS: ALPRAZOLAM 0.25 MG TAB PO SCH ×3 (10:32→21:00)
[2021-05-23] MEDS: DEXMEDETOMIDINE 400MCG/NS100ML 100 ML IV PRN (12:00)
[2021-05-23] MEDS: INSULIN GLARGINE 100 UNITS/ML VIAL SQ SCH (21:57)
[2021-05-24] VITALS (21 sets, daily range): BP systolic 93–125; BP diastolic 55–90
[2021-05-24] MEDS: QUETIAPINE FUMARATE 25 MG TAB PO SCH ×4 (00:45→16:53)
[2021-05-24] MEDS: DEXMEDETOMIDINE 400MCG/NS100ML 100 ML IV PRN ×3 (01:00→20:00)
[2021-05-24] MEDS: IPRATROPIUM BROMIDE INHALER 12.9 GM INH INH SCH ×4 (01:12→19:00)
[2021-05-24] MEDS: ALBUTEROL SULFATE HFA 8GM INHALATION AEROSOL INH SCH ×4 (01:12→19:00)
[2021-05-24] MEDS: INSULIN LISPRO 100 UNIT/1 ML 3ML VIAL SQ SCH ×4 (07:30→21:45)
[2021-05-24] MEDS: SEVELAMER CARBONATE 800 MG TAB PO SCH ×3 (07:30→16:30)
[2021-05-24] MEDS: ALPRAZOLAM 0.25 MG TAB PO SCH ×3 (08:22→21:00)
[2021-05-24] MEDS: AMIODARONE HCL 200 MG TAB PO SCH (08:22)
[2021-05-24] MEDS: LACTOBACILLUS ACIDOPHILUS CAPSULE PO SCH ×2 (08:22→16:53)
[2021-05-24] MEDS: NOREPINEPHRINE 8 MG/D5W 250 ML 250 ML IV SCH (10:58)
[2021-05-24] MEDS: APIXAB 2.5 MG TABLET PO SCH (16:53)
[2021-05-24] MEDS: INSULIN GLARGINE 100 UNITS/ML VIAL SQ SCH (21:45)
[2021-05-25] VITALS (17 sets, daily range): BP systolic 77–116; BP diastolic 55–71
[2021-05-25] MEDS: ALBUTEROL SULFATE HFA 8GM INHALATION AEROSOL INH SCH ×4 (01:00→20:02)
[2021-05-25] MEDS: IPRATROPIUM BROMIDE INHALER 12.9 GM INH INH SCH ×4 (01:00→20:01)
[2021-05-25] MEDS: DEXMEDETOMIDINE 400MCG/NS100ML 100 ML IV PRN ×2 (04:11→11:00)
[2021-05-25] MEDS: QUETIAPINE FUMARATE 25 MG TAB PO SCH ×4 (06:00→16:58)
[2021-05-25] MEDS: INSULIN LISPRO 100 UNIT/1 ML 3ML VIAL SQ SCH ×3 (07:30→16:30)
[2021-05-25] MEDS: LACTOBACILLUS ACIDOPHILUS CAPSULE PO SCH ×2 (08:46→16:00)
[2021-05-25] MEDS: APIXAB 2.5 MG TABLET PO SCH ×2 (08:46→16:00)
[2021-05-25] MEDS: SEVELAMER CARBONATE 800 MG TAB PO SCH ×3 (08:46→16:00)
[2021-05-25] MEDS: ALPRAZOLAM 0.25 MG TAB PO SCH ×2 (09:00→16:00)
[2021-05-25] MEDS: AMIODARONE HCL 200 MG TAB PO SCH (10:30)
== END 2021-05-25 20:24 | DRG 177 ==
LOC: ER 11:45 → ERHOLD 13:22 → IMCU 14:32
PROVIDERS: ADMIT Internal Medicine; ATTEND Internal Medicine
PROC: 5A1D70Z Performance of Urinary Filtration, Intermittent, Less than 6 Hours Per Day (ICD-10-PCS; 2021-05-04)
PROC: 5A0935A Assistance with Respiratory Ventilation, Less than 24 Consecutive Hours, High Flow/Velocity Cannula (ICD-10-PCS; 2021-05-04)
PROC: 3E0333Z Introduction of Anti-inflammatory into Peripheral Vein, Percutaneous Approach (ICD-10-PCS; 2021-05-04)
PROC: XW033E5 Introduction of Remdesivir Anti-infective into Peripheral Vein, Percutaneous Approach, New Technology Group 5 (ICD-10-PCS; 2021-05-05)
PROC: 02HV33Z Insertion of Infusion Device into Superior Vena Cava, Percutaneous Approach (ICD-10-PCS; principal; 2021-05-16)
PROC: 3E033XZ Introduction of Vasopressor into Peripheral Vein, Percutaneous Approach (ICD-10-PCS; 2021-05-16)
PROC: 30233N1 Transfusion of Nonautologous Red Blood Cells into Peripheral Vein, Percutaneous Approach (ICD-10-PCS; 2021-05-18)
PROC: 5A0945A Assistance with Respiratory Ventilation, 24-96 Consecutive Hours, High Flow/Velocity Cannula (ICD-10-PCS; 2021-05-18)
DX: U07.1 COVID-19 (principal); N18.6 End stage renal disease; J96.01 Acute respiratory failure with hypoxia; J12.82 Pneumonia due to coronavirus disease 2019; J15.9 Unspecified bacterial pneumonia; G92.8 Other toxic encephalopathy; I13.2 Hypertensive heart and chronic kidney disease with heart failure and with stage 5 chronic kidney disease, or end stage renal disease; R57.9 Shock, unspecified; F03.91 Unspecified dementia, unspecified severity, with behavioral disturbance; F05 Delirium due to known physiological condition; E11.22 Type 2 diabetes mellitus with diabetic chronic kidney disease; E11.65 Type 2 diabetes mellitus with hyperglycemia; J44.9 Chronic obstructive pulmonary disease, unspecified; Z99.2 Dependence on renal dialysis; Z91.15 Patient's noncompliance with renal dialysis; Z88.8 Allergy status to other drugs, medicaments and biological substances; E87.5 Hyperkalemia; Z88.5 Allergy status to narcotic agent; Z66 Do not resuscitate; E66.9 Obesity, unspecified; Z96.651 Presence of right artificial knee joint; Z83.3 Family history of diabetes mellitus; Z82.49 Family history of ischemic heart disease and other diseases of the circulatory system; R53.81 Other malaise; D50.0 Iron deficiency anemia secondary to blood loss (chronic); E11.649 Type 2 diabetes mellitus with hypoglycemia without coma; I50.9 Heart failure, unspecified; I48.0 Paroxysmal atrial fibrillation; F41.0 Panic disorder [episodic paroxysmal anxiety]; Z68.27 Body mass index [BMI] 27.0-27.9, adult
CPT/HCPCS: 36415; 71045; 74018; 74176; 80048; 80053; 80061; 82948; 83540; 83735; 83880; 84100; 84443; 84466; 84484; 85025; 86705; 86706; 86850; 86900; 86920; 87040; 87340; 90962; 93005; 93306; 94664; 94799; 96372; 99251; 99284; J0248; J0456; J0696; J1100; J1200; J1644; J1650; J1720; J1815; J1817; J2185; J2270; J2405; J2997; J3370; J3486; J7030; J7050; J7799; P9016; P9047; U0002